=== PATIENT | female | born 1965 | race Caucasian/White ===

== ENCOUNTER 2018-05-11 22:16 | Emergency (ER) | payer OTHER ==
[~2018-05-11] VITALS: Ht 157.5 cm; Wt 79.4 kg
[2018-05-11 22:21] VITALS: Ht 157.5 cm; Wt 79.4 kg
[2018-05-11 23:04] LABS: BASOPHIL % 0.3 % (0-2); RED CELL DISTRIBUTION WIDTH 18.3 % (11.5-14.5)
[2018-05-11 23:08] LABS: PLATELET COUNT 567 x10^3mcL (130-400)
[2018-05-11 23:10] LABS: CALCIUM 9.2 mg/dL (8.5-10.1); CARBON DIOXIDE 27.2 mmol/L (21-32); CHLORIDE SERUM 101 mmol/L (98-107); CREATININE SERUM 0.8 mg/dL (0.6-1.0); GFR1 > 60 mL/min; GLUCOSE SERUM 120 mg/dL (74-106); POTASSIUM SERUM 3.3 mmol/L (3.5-5.1); SODIUM SERUM 141 mmol/L (136-145)
[2018-05-11 23:15] LABS: ALBUMIN 3.6 g/dL (3.4-5.0); ALKALINE PHOSPHATASE 71 U/L (46-116); ALT/SGPT 31 U/L (14-59); AST/SGOT 19 U/L (15-37); BILIRUBIN TOTAL 0.35 mg/dL (0.20-1.00); LIPASE 135 IU/L (73-393); TOTAL PROTEIN, SERUM 7.8 g/dL (6.4-8.2)
[2018-05-11 23:44] LABS: UA SPECIFIC GRAVITY >=1.030 (1.005-1.035); microscopic required? YES; urine erythrocyte NEGATIVE (NEGATIVE)
[2018-05-12 02:24] VITALS: BP 124/62
== END 2018-05-12 02:24 | disposition home or self-care (01) ==
LOC: ED 22:16
PROVIDERS: Emergency Medicine
DX: N39.0 Urinary tract infection, site not specified (principal); I10 Essential (primary) hypertension
CPT/HCPCS: J0696; J1885; J7030; J8597

== ENCOUNTER 2019-03-26 09:09 | Emergency (ER) | payer OTHER ==
[~2019-03-26] VITALS: Ht 157.5 cm; Wt 83.5 kg
[2019-03-26 09:18] VITALS: Ht 157.5 cm; Wt 83.5 kg
[2019-03-26] MEDS ORDERED: TES100 PO (10:15)
[2019-03-26] MEDS ORDERED: NATURE'S BLEND F1 MG PO (10:16)
[2019-03-26] MEDS ORDERED: METOPROLOL TART25 M1 PO (10:16)
[2019-03-26] MEDS ORDERED: HYD25 PO (10:16)
[2019-03-26] MEDS ORDERED: GOOD SENSE OMEP20 MG PO (10:17)
[2019-03-26] MEDS ORDERED: LEADER VITAMI2000 IU PO (10:17)
[2019-03-26 10:45] LABS: CARBON DIOXIDE 26.6 mmol/L (21-32); CHLORIDE SERUM 100 mmol/L (98-107); CREATININE SERUM 0.6 mg/dL (0.6-1.0); GFR1 > 60 mL/min; GLUCOSE SERUM 115 mg/dL (74-106); POTASSIUM SERUM 3.1 mmol/L (3.5-5.1); SODIUM SERUM 138 mmol/L (136-145)
[2019-03-26 10:57] LABS: ALBUMIN 3.6 g/dL (3.4-5.0); ALKALINE PHOSPHATASE 78 U/L (46-116); ALT/SGPT 45 U/L (14-59); AST/SGOT 28 U/L (15-37); BILIRUBIN TOTAL 0.3 mg/dL (0.20-1.00); CHOLESTEROL 196 mg/dL (<200); LIPASE 196 IU/L (73-393); T4(THYROXINE) 7.5 ug/dL (4.7-13.3); TOTAL PROTEIN, SERUM 7.5 g/dL (6.4-8.2)
[2019-03-26 10:59] LABS: HDL CHOLESTEROL 34 mg/dL (40-60)
[2019-03-26 11:22] LABS: AMPHETAMINE QUAL UR NONE DETECTED (See below)
[2019-03-26 11:38] LABS: BASOPHIL % 0.4 % (0-2); PLATELET COUNT 344 x10^3mcL (130-400)
[2019-03-26 11:41] LABS: RED CELL DISTRIBUTION WIDTH 16.4 % (11.5-14.5)
[2019-03-26 12:57] LABS: microscopic required? YES
[2019-03-26 12:58] LABS: urine erythrocyte TRACE (NEGATIVE)
[2019-03-26 13:46] VITALS: BP 126/66
== END 2019-03-26 13:44 | disposition home or self-care (01) ==
LOC: ED 09:09
PROVIDERS: Emergency Medicine
DX: J98.01 Acute bronchospasm (principal); E87.6 Hypokalemia; I11.9 Hypertensive heart disease without heart failure; E78.00 Pure hypercholesterolemia, unspecified; E66.9 Obesity, unspecified; Z68.33 Body mass index [BMI] 33.0-33.9, adult; Z86.2 Personal history of diseases of the blood and blood-forming organs and certain disorders involving the immune mechanism; Z90.49 Acquired absence of other specified parts of digestive tract; Z90.710 Acquired absence of both cervix and uterus
CPT/HCPCS: 36415; 36600; G0480; J2930; J7613; J7644

== ENCOUNTER 2019-11-10 18:41 | Emergency (ER) | payer OTHER ==
[~2019-11-10] VITALS: Ht 157.5 cm; Wt 87.5 kg
[~2019-11-10 18:41] MED LIST: GOOD SENSE OMEP20 MG PO; HYD25 PO; LEADER VITAMI2000 IU PO; METOPROLOL TART25 M1 PO; NATURE'S BLEND F1 MG PO; TES100 PO
[2019-11-10 19:01] VITALS: Ht 157.5 cm; Wt 87.5 kg
[2019-11-10 21:05] VITALS: BP 159/97
== END 2019-11-10 21:05 | disposition home or self-care (01) ==
LOC: ED 18:41
DX: S93.401A Sprain of unspecified ligament of right ankle, initial encounter (principal); X50.1XXA Overexertion from prolonged static or awkward postures, initial encounter; Y93.89 Activity, other specified; Y92.89 Other specified places as the place of occurrence of the external cause; Y99.8 Other external cause status
CPT/HCPCS: J1885